=== PATIENT | female | born 1995 | race Asian ===

== ENCOUNTER 2020-06-09 10:58 | Emergency (ER) | payer MEDICAID ==
[~2020-06-09] VITALS: Ht 165.1 cm; Wt 113.6 kg
[2020-06-09] MEDS ORDERED: CYCL-1 PO (12:04)
[2020-06-09] MEDS ORDERED: NAPR-56 PO (12:04)
[2020-06-09] MEDS ORDERED: ketorolac trometh inj. 60 MG/2 ML VIAL IM ONE (12:05)
[2020-06-09 13:04] VITALS: BP 123/90
== END 2020-06-09 12:21 | disposition home or self-care (01) ==
LOC: ER 10:59
DX: M54.42 Lumbago with sciatica, left side (principal); G89.29 Other chronic pain; M25.552 Pain in left hip; Z88.8 Allergy status to other drugs, medicaments and biological substances; Z79.899 Other long term (current) drug therapy
CPT/HCPCS: 96372; 99283; J1885

== ENCOUNTER 2020-08-03 09:56 | Emergency (ER) | payer MEDICAID ==
[~2020-08-03] VITALS: Ht 160 cm; Wt 107.0 kg
[~2020-08-03 09:56] MED LIST: CYCL-1 PO
[2020-08-03 09:59] VITALS: BP 151/100
[2020-08-03] MEDS ORDERED: ORPH100T2 PO (10:33)
[2020-08-03] MEDS ORDERED: GABA100C PO (10:33)
[2020-08-03] MEDS ORDERED: orphenadrine citrate 60mg/2ml inj. IM ONE (10:35)
[2020-08-03] MEDS ORDERED: HYDROcodone/acetaminophen 5mg/325mg tablet PO ONE (10:35)
[2020-08-03] MEDS ORDERED: ketorolac trometh inj. 60 MG/2 ML VIAL IM ONE (10:35)
== END 2020-08-03 12:15 | disposition home or self-care (01) ==
LOC: ER 09:56
DX: G89.29 Other chronic pain (principal); M54.32 Sciatica, left side; Z88.8 Allergy status to other drugs, medicaments and biological substances; Z79.899 Other long term (current) drug therapy
CPT/HCPCS: 96372; 99284; J1885; J2360